=== PATIENT | female | born 1980 | race Caucasian/White ===

== ENCOUNTER 2024-04-23 15:18 | Emergency (ER) | payer SELFPAY ==
--- NOTE | 2024-04-23 15:49 | ED.HEATRA ---
HPI - Head Injury General Chief complaint: Skin/Abscess/Foreign Body Stated complaint: left side forehead bump/woke up with it Time Seen by Provider: 04/23/24 21:08 Source: patient Mode of arrival: ambulatory Limitations: no limitations History of Present Illness ED Provider: Dr. Mireille Morales HPI Narrative: Patient comes to the emergency room complaining of an itchy painful rash with small vesicles on the left side of the forehead radiating towards the left cheondoism. Patient states that she has not had any fever, but states that she does have a bit of a headache. She denies rash anywhere else. Related Data Previous Rx's ?Medication ?Instructions ?Recorded calamine 8 %-zinc oxide 8 % lotion 1 appl topical 6XD PRN skin 04/23/24 irritation #177 mL prednisone 50 mg tablet 50 mg PO DAILY #4 tabs 04/23/24 valacyclovir 1 gram tablet 1,000 mg PO TID 5 days #15 tabs 04/23/24 Allergies Allergy/AdvReac Type Severity Reaction Status Date / Time No Known Allergies Allergy Verified 04/23/24 15:53 Review of Systems Review of Systems: Constitutional : No Weight loss, No Fever, No Chills, No Night Sweats, No Fatigue, No Malaise ENT/Mouth : No Hearing loss, No Ear Pain, No Nasal Congestion, No Sinus Pain, No Hoarseness, No sore throat, No Rhinorrhea, No Swallowing Difficulty Eyes: No Eye Pain, No Swelling, No Redness, No Foreign Body, No Discharge, No Vision Changes Cardiovascular : No Chest Pain, No SOB, No Dyspnea on Exertion, No Orthopnea, No Edema, No Palpitations Respiratory : No Cough, No Sputum, No Wheezing, No Smoke Exposure, No Dyspnea Gastrointestinal : No Nausea, No Vomiting, No Diarrhea, No Constipation, No abdominal Pain, No Hematochezia, No Melena Genitourinary : no irregular bleeding, No Dysuria, No Urinary Frequency, No Hematuria, No Urinary Incontinence, No Urgency, No Flank Pain, No Urinary Flow Changes, No Hesitancy Musculoskeletal : No joint pain, No Myalgias, No Joint Swelling Skin : Complaining of vesicle on the left side of the forehead and cheondoism that are itchy and a bit painful Neuro : No Weakness, No Numbness, No Paresthesias, No Loss of Consciousness, No Dizziness, No Headache Psych : No Anxiety/Panic, No Depression, No SI/HI/AH/VH, No Social Issues, Heme/Lymph: No Bruising, No Bleeding,No Lymphadenopathy Endocrine : No Polyuria, No Polydipsia, No Temperature Intolerance [facility] Social History Social History Advance Directives: No Advance Directives Information Provided: No Physical Exam Vital Signs: Vital Signs: Last Vital Signs Temp 97.9 F 04/23/24 21:17 Pulse 76 04/23/24 21:17 Resp 16 04/23/24 21:17 BP 144/93 H 04/23/24 21:17 Pulse Ox 97 04/23/24 21:17 O2 Del Method Room Air 04/23/24 21:17 BMI result Body Mass Index 42.7 Const: Other: Constitutional : No Weight loss, No Fever, No Chills, No Night Sweats, No Fatigue, No Malaise ENT/Mouth : No Hearing loss, No Ear Pain, No Nasal Congestion, No Sinus Pain, No Hoarseness, No sore throat, No Rhinorrhea, No Swallowing Difficulty. Normal nose, no rash on the nose Eyes: No Eye Pain, No Swelling, No Redness, No Foreign Body, No Discharge, No Vision Changes, fluorescein test negative for dendrites, no periorbital edema or vesicles Cardiovascular : No Chest Pain, No SOB, No Dyspnea on Exertion, No Orthopnea, No Edema, No Palpitations Respiratory : No Cough, No Sputum, No Wheezing, No Smoke Exposure, No Dyspnea Gastrointestinal : No Nausea, No Vomiting, No Diarrhea, No Constipation, No abdominal Pain, No Hematochezia, No Melena Genitourinary : no irregular bleeding, No Dysuria, No Urinary Frequency, No Hematuria, No Urinary Incontinence, No Urgency, No Flank Pain, No Urinary Flow Changes, No Hesitancy Musculoskeletal : No joint pain, No Myalgias, No Joint Swelling Skin : Patient has vesicular rash on the left side of the forehead and under the hair right above the left side of the forehead passing the hairline. Tender to touch Neuro : No Weakness, No Numbness, No Paresthesias, No Loss of Consciousness, No Dizziness, No Headache Psych : No Anxiety/Panic, No Depression, No SI/HI/AH/VH, No Social Issues, Heme/Lymph: No Bruising, No Bleeding,No Lymphadenopathy Endocrine : No Polyuria, No Polydipsia, No Temperature Intolerance Course Course Course Narrative: This is a Rapid Medical Exam performed in triage by Renetta Khan PA-C. Full HPI, ROS and PE to be performed by primary ED provider. 44-year-old female presenting to the ED c/o rash noted to forehead since Tuesday with associated migraine VILLATORO. Reports rashes spreading, described as burning. Denies any vision changes however does report pain to left ear PE: Erythematous rash noted to left forehead near hairline with some open scabbing ? Zoster Plan: Ophthalmic/ear exam Medical Decision Making Medical Decision Making [facility] Narrative: I discussed the physical exam and findings with the patient. Patient likely has shingles. Patient was given the 1st dose of valacyclovir and prednisone in the ED. I discussed contact precautions with the patient. Discharge Plan Discharge Clinical Impression: Shingles Patient Disposition: Home, Self-Care Instructions: Shingles (ED) Additional Instructions: Please follow-up with your primary care physician tomorrow. If you have any worsening or new symptoms, please return to the emergency room or call 911 Prescriptions: New valacyclovir 1 gram tablet 1,000 mg PO TID 5 Days Qty: 15 0RF prednisone 50 mg tablet 50 mg PO DAILY Qty: 4 0RF calamine-zinc oxide 8-8 % lotion 1 appl topical 6XD PRN (Reason: skin irritation) Qty: 177 0RF Print Language: [place]
[2024-04-23 15:50] VITALS: BP 144/88; PULSE 83; RESP 16; TEMP 36.7; O2SAT 99; BMI 42.7
[2024-04-23 21:17] VITALS: BP 144/93; PULSE 76; RESP 16; TEMP 36.6; O2SAT 97
[2024-04-23] MEDS: Tetracaine HCl/PF 0.5% Oph Sol 4 ML DROPS 1 DROP EYE-LEFT (22:05)
[2024-04-23] MEDS: Fluorescein Sodium STRIP 1 STRIP EYE-LEFT (22:05)
[2024-04-23] MEDS: predniSONE 10 MG TABLET 50 MG PO (22:05)
[2024-04-23] MEDS: valACYclovir HCL 1,000 MG TABLET 1000 MG PO (22:05)
[2024-04-23 22:09] VITALS: BP 144/93; PULSE 76; RESP 16; TEMP 36.6; O2SAT 97
== END 2024-04-23 22:09 | disposition home or self-care (01) ==
PROVIDERS: Emergency Provider Emergency Medicine
DX: B02.8 Zoster with other complications (principal); R21 Rash and other nonspecific skin eruption
CPT/HCPCS: 99283